=== PATIENT | female | born 1960 | race Asian ===

== ENCOUNTER 2018-10-23 00:16 | Emergency (ER) | payer OTHER ==
[~2018-10-23] VITALS: Ht 157.5 cm; Wt 56.5 kg
[~2018-10-23 00:16] MED LIST: ASPI325T30 PO; PANT40TA4 PO
[2018-10-23 00:22] VITALS: BP 136/77; PULSE 71; RESP 18; Ht 157.5 cm; Wt 56.5 kg
[2018-10-23] MEDS ORDERED: PRED20TA PO (00:50)
[2018-10-23] MEDS ORDERED: BEN25 PO (00:50)
--- NOTE | 2018-10-23 00:54 | ERD ---
ER Documentation Chief Complaint Chief Complaint SKIN RASH X'S 2 DAYS HPI Is a 58-year-old female who has rash all over body for 2 days. It is very itchy. She has no fever or recent illness. No cough. No redness in her eyes. No new foods soaps or irritants he can think of. Has not tried any medications for this. ROS All systems reviewed and are negative except as per history of present illness. Medications Home Meds Active Scripts Prednisone* (Prednisone*) 20 Mg Tab, 60 MG PO DAILY for 5 Days, TAB Prov:ROSAURA MAJANO PA-C 10/23/18 Diphenhydramine Hcl* (Benadryl*) 25 Mg Cap, 25 MG PO Q6, #30 CAP Prov:ROSAURA MAJANO PA-C 10/23/18 Aspirin* (Aspirin*) 325 Mg Tablet, 81 MG PO QAM, #60 TAB Prov:JARAD HAMM NP 05/15/14 Pantoprazole (Protonix) 40 Mg Tabec, 40 MG PO QAM, #60 Prov:JARAD HAMM [employer]AL SERVICE CLERK 05/15/14 Allergies Allergies: Coded Allergies: No Known Allergy (Unverified , 10/23/18) PMhx/Soc History of Surgery: No Anesthesia Reaction: No Hx Neurological Disorder: No Hx Respiratory Disorders: Yes Hx Cardiac Disorders: Yes (TACHYCARDIA) Hx Psychiatric Problems: No Hx Miscellaneous Medical Probl: No Hx Alcohol Use: No Hx Substance Use: No Hx Tobacco Use: No Smoking Status: Never smoker FmHx Family History: No diabetes Physical Exam Vitals Vital Signs Date Temp Pulse Resp B/P (MAP) Pulse Ox O2 O2 Flow FiO2 Time Delivery Rate 10/23/18 97.3 71 18 136/77 99 00:22 (96) Physical Exam Const: No acute distress Head: Atraumatic Eyes: Normal Conjunctiva ENT: Normal External Ears, Nose and Mouth. Neck: Full range of motion. No meningismus. Resp: Clear to auscultation bilaterally Cardio: Regular rate and rhythm, no murmurs Abd: Soft, non tender, non distended. Normal bowel sounds Skin: Red macular papular rash all over her body particularly of bilateral lower extremities on upper thighs and upper extremities and chest wall and abdomen Results 24 hrs Current Medications Medications Dose Sig/Tien Start Time Status Last (Trade) Ordered Route PRN Stop Time Admin Dose Reason Admin Prednisone 60 mg ONCE ONCE 10/23/18 (Prednisone) PO 01:00 10/23/18 01:01 Procedures/MDM Patient presents with dermatitis. No evidence of life-threatening rash. No fever. First dose of prednisone given here prescription for course of prednisone given as well as Benadryl. Patient counseled regarding my diagnostic impression and care plan. Prior to discharge all questions answered. Pt agrees with treatment plan and understands strict return precautions. Pt is instructed to follow up with primary care provider within 24-48 hours. Precautionary instructions provided including instructions to return to the ER if not improving or for any worsening or changing symptoms or concerns. Departure Diagnosis: Primary Impression: Rash Condition: Stable Patient Instructions: Self-Care for Skin Rashes Additional Instructions: Call your primary care doctor TOMORROW for an appointment during the next 1-2 days.See the doctor sooner or return here if your condition worsens before your appointment time. ROSAURA MAJANO PA-C Oct 23, 2018 00:54
[2018-10-23] MEDS ORDERED: predniSONE 20 MG TAB PO ONE (01:00)
== END 2018-10-23 01:26 | disposition home or self-care (01) ==
LOC: FTE 00:16
DX: R21 Rash and other nonspecific skin eruption (principal)
CPT/HCPCS: 99283; J7512